=== PATIENT | male | born 1980 | race African-American/Black ===

== ENCOUNTER 2023-02-28 15:32 | Emergency (ER) | payer SELFPAY ==
--- NOTE | ~2023-02-28 | XR_ITS ---
EXAMINATION: XR forearm LT 2V INDICATION: Laceration, possible foreign body/glass TECHNIQUE: Two views of the left forearm are obtained. COMPARISON: None available FINDINGS: Bone alignment is normal. There is no fracture. There is an anterior soft tissue laceration overlying the proximal forearm. No radiopaque foreign body is identified. The joint spaces are tennille l. IMPRESSION: 1. Soft tissue laceration of the proximal forearm without radiopaque foreign body or acute osseous ab normality identified. Reviewed, dictated and finalized at location L. IMPRESSION: 1. Soft tissue laceration of the proximal forearm without radiopaque foreign randall dy or acute osseous abnormality identified.
[2023-02-28 15:35] VITALS: BP 135/73; PULSE 71; RESP 16; TEMP 37.1; O2SAT 99
--- NOTE | 2023-02-28 16:04 | ED.GENADULT ---
HPI - General Adult General Chief complaint: Wound/Laceration Stated complaint: left arm lac Time Seen by Provider: 02/28/23 15:38 History of Present Illness HPI narrative: 42-year-old male presented the ED for evaluation of a laceration to his left arm. Patient reports that he struck a piece of glass accidentally with his left hand causing the glass to lacerate his left arm. Patient denies any associated numbness or weakness. Patient states he did strike the pain of glass but did not intend to break it and had no intent on self-harm. Related Data Allergies Allergy/AdvReac Type Severity Reaction Status Date / Time No Known Allergies Allergy Unknown Verified 02/28/23 15:37 Review of Systems Review of Systems: All systems reviewed & are unremarkable except as noted in HPI and below Exam Narrative: APPEARANCE: Well appearing, no pain, no distress, well-nourished. HEAD: normocephalic, atraumatic. EYES: PERRLA/EOMI, conjunctivae clear. NOSE: Normal no drainage NECK: Supple. No adenopathy, no masses. RESPIRATORY: Airway patent, respirations nonlabored. Clear to auscultation bilaterally, no rales, rhonchi, wheezing. CARDIOVASCULAR: Regular rate and rhythm without murmurs rubs or gallops. ABDOMINAL: Soft, nontender, nondistended, normal bowel sounds MUSCULOSKELETAL: Moves all extremities. Strength/ROM intact, No edema, No calf tenderness. NEURO: Alert. Cranial nerves II through XII intact. Grossly intact SKIN: 3 lacerations to left forearm PSYCHIATRIC: Normal affect/mood. Course Course Emergency Course: 42-year-old male presented the ED for evaluation of multiple lacerations to his left arm. Patient's tetanus was updated. X-ray showed no foreign bodies. Lacerations were repaired as described in the procedure note. Patient's tetanus is updated. Patient was updated on wound care and was started on antibiotics for outpatient. All question concerns were addressed and patient was comfortable to plan for discharge and close follow-up Vital Signs Vital signs: Vital Signs Temperature 98.7 F 02/28/23 15:35 Pulse Rate 71 02/28/23 15:35 Respiratory Rate 16 02/28/23 15:35 Blood Pressure 135/73 02/28/23 15:35 Pulse Oximetry 99 02/28/23 15:35 Temperature 98.7 F 02/28/23 15:35 Pulse Rate 71 02/28/23 15:35 Respiratory Rate 16 02/28/23 15:35 Blood Pressure 135/73 02/28/23 15:35 Pulse Oximetry 99 02/28/23 15:35 Procedures Laceration Laceration 1: Site: upper extremity Side (If applicable): left Size (cm): 5 Description: linear Depth: simple, single layer Local Anesthetic: lidocaine 1% and with epi Amount of anesthesia used (mL): 2 Pre-repair: wound explored, irrigated and irrigated extensively ====== Skin Level ====== Skin layer closed with: nylon Size (cm): 4-0 Number of sutures: 6 Technique: simple, interrupted ====== Subcutaneous Layer ====== ====== Muscle Layer ====== ====== Tendon Layer ====== Laceration 2: Site: upper extremity Side (If applicable): left Size (cm): 6 Description: linear Depth: simple, single layer Local Anesthetic: lidocaine 1% and with epi Amount of anesthesia used (mL): 2 Pre-repair: wound explored, irrigated and irrigated extensively ====== Skin Level ====== Size (cm): 4-0 Number of sutures: 6 Technique: simple, interrupted ====== Subcutaneous Layer ====== ====== Muscle Layer ====== ====== Tendon Layer ====== Laceration 3: Site: upper extremity Side (If applicable): left Size (cm): 9 Description: linear Depth: simple, single layer Local Anesthetic: lidocaine 1% and with epi Amount of anesthesia used (mL): 3 ====== Skin Level ====== Size (cm): 4-0 Number of sutures: 14 Technique: simple, int
[2023-02-28] MEDS: TETANUS/DIPHTHERIA TOXOIDS ADSORB 0.5 ML VIAL (*BKC) (16:19)
[2023-02-28] MEDS: LIDO 1%/EPINEPHRINE 1:100,000 20 ML VIAL (16:21)
== END 2023-02-28 17:22 | disposition home or self-care (01) ==
PROVIDERS: Emergency Provider Emergency Medicine
DX: S51.812A Laceration without foreign body of left forearm, initial encounter (principal); Z23 Encounter for immunization; W25.XXXA Contact with sharp glass, initial encounter
CPT/HCPCS: 12005; 73090; 90471; 90714; 99283

== ENCOUNTER 2023-03-10 16:26 | Emergency (ER) | payer SELFPAY ==
[2023-03-10 16:32] VITALS: BP 126/64; PULSE 62; RESP 16; TEMP 36.5
--- NOTE | 2023-03-10 17:35 | ED.GENADULT ---
HPI - General Adult General Chief complaint: Unspecified Stated complaint: stitch removal Time Seen by Provider: 03/10/23 16:59 Source: patient Mode of arrival: ambulatory Limitations: no limitations History of Present Illness HPI narrative: This is a 42 year old male that presents to the ER for suture removal. Reports sutures placed in his left arm 10 days ago. Denies fever, erythema or drainasge. Related Data Allergies Allergy/AdvReac Type Severity Reaction Status Date / Time No Known Allergies Allergy Unknown Verified 03/10/23 16:50 Review of Systems Review of Systems: CONSTITUTIONAL: Denies fever SKIN: Reports laceration All systems reviewed & are unremarkable except as noted in HPI and below PMFSH Past Medical History Medical History (Updated 03/10/23 @ 17:39 by Richa Cruz PA-C) No active medical problems Social History Social History (Updated 03/10/23 @ 17:39 by Richa Cruz PA-C) Substance use: never Exam Narrative: GENERAL: Well-appearing, well-nourished, and in no acute distress. HEAD: Normocephalic, atraumatic. EYES: EOMI. EXTREMITIES: Normal range of motion. No edema or erythema. Left arm with sutures in place, intact without drainage or erythema SKIN: Warm, dry, no rash. NEURO: No focal deficits. Alert and oriented x3. PSYCH: Normal mood and affect Course Course Emergency Course: Patient educated on continued wound care Vital Signs Vital signs: Vital Signs Temperature 97.7 F 03/10/23 16:32 Pulse Rate 62 03/10/23 16:32 Respiratory Rate 16 03/10/23 16:32 Blood Pressure 126/64 03/10/23 16:32 Temperature 97.7 F 03/10/23 16:32 Pulse Rate 62 03/10/23 16:32 Respiratory Rate 16 03/10/23 16:32 Blood Pressure 126/64 03/10/23 16:32 Procedures Other Procedure Procedure 1: Other Procedure: Sutures removed to the left arm with pickups and iris scissors. He did have one suture that I had to remove a small scab to remove it, otherwise no complications Medical Decision Making MDM Narrative Medical decision making narrative: Patient presents to the emergency department for suture removal. No erythema, edema, or abnormal drainage from the wound. It does appear well-healing. Sutures removed to the left arm with pickups and iris scissors. He did have one suture that I had to remove a small scab to remove it, otherwise no complications. He was educated on continued wound care. Given warnings to return to the ER Medical Records Medical records reviewed: Yes I reviewed the external patient's medical records. Vital Signs Vital Signs: Vital Signs Temperature 97.7 F 03/10/23 16:32 Pulse Rate 62 03/10/23 16:32 Respiratory Rate 16 03/10/23 16:32 Blood Pressure 126/64 03/10/23 16:32 Temperature 97.7 F 03/10/23 16:32 Pulse Rate 62 03/10/23 16:32 Respiratory Rate 16 03/10/23 16:32 Blood Pressure 126/64 03/10/23 16:32 Critical Care Time Critical Care Time Critical Care Time: No Discharge Plan Discharge Clinical Impression: Visit for suture removal Patient Disposition: Home, Self-Care Condition: Stable Instructions: Stitches Removal (ED) Additional Instructions: Return to the emergency department if you experience fever, redness or swelling of your wound, abnormal drainage from your wound, or any other symptoms that are concerning to you. Apply antibiotic ointment daily. Clean with mild soap and water daily Follow-up with your primary care doctor as needed Prescriptions: No Action cephalexin 500 mg capsule 500 mg PO Q12H 7 Days Qty: 14 0RF Follow-up/Referrals: PHYSICIAN NOT ON STAFF,NONSTAFF [Primary Care Provider] -
== END 2023-03-10 17:43 | disposition home or self-care (01) ==
PROVIDERS: Emergency Provider Physician Assistant
DX: S41.112D Laceration without foreign body of left upper arm, subsequent encounter (principal); X58.XXXD Exposure to other specified factors, subsequent encounter
CPT/HCPCS: 15853; 99281